=== PATIENT | male | born 1950 | race Caucasian/White ===

== ENCOUNTER 2016-11-18 11:54 | Inpatient (IN) | payer OTHER, MEDICARE ==
[2016-11-18] VITALS (9 sets, daily range): BP systolic 136–186; BP diastolic 66–89; PULSE 50–54; RESP 16–22; TEMP 98.4–98.8; O2SAT 93–99
[~2016-11-18] VITALS: Ht 170.2 cm; Wt 70.2 kg
[2016-11-18] MEDS ORDERED: ALLO300T2 PO (11:58)
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
[2016-11-18 12:35] LABS: POTASSIUM 4.1 MEQ/L (3.5-5.1)
[2016-11-18 12:39] LABS: BICARBONATE 29.2 MEQ/L (21.0-32.0)
[2016-11-18] MEDS ORDERED: MORPHINE SULFATE 8 MG/ML INJ IV PUSH ONE (12:45)
[2016-11-18] MEDS ORDERED: ONDANSETRON HCL 4 MG/2 ML VIAL IV PUSH ONE (12:45)
[2016-11-18] MEDS: SODIUM CHLOR 0.9% 1000 ML INJ 1,000 ML IV SCH ×2 (12:54→20:57)
[2016-11-18 13:04] LABS: AUTOMATED NEUTROPHIL # 4.5 TH/MM3 (1.8-7.7); BASOPHIL % 0.4 % (0.0-2.0); EOSINOPHIL # 0.1 TH/MM3 (0-0.4); EOSINOPHIL % 1.3 % (0.0-4.0); HEMO FLAGS DIFF FINAL; LYMPH % 16.5 % (9.0-44.0); MEAN CORPUSCULAR HEMOGLOBIN 36.1 PG (27.0-34.0); MEAN CORPUSCULAR HGB CONC 34.4 % (32.0-36.0); MONO % 8.3 % (0.0-8.0); NEUT % 73.5 % (16.0-70.0); PLATELET COUNT 111 TH/MM3 (150-450); RED CELL DISTRIBUTION WIDTH 12.9 % (11.6-17.2); WHITE BLOOD COUNT 6.1 TH/MM3 (4.0-11.0)
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
[2016-11-18] MEDS ORDERED: HYDROmorphone HCL PF 1 MG/ML VIAL IV PUSH ONE ×2 (13:45→16:15)
[2016-11-18] MEDS ORDERED: IOHEXOL 350 MG/ML 10 ML VIAL (for RAD DIAG) IV ONE (13:46)
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
[2016-11-18] MEDS ORDERED: ONDANSETRON HCL 4 MG/2 ML VIAL IV PRN (19:00)
[2016-11-18] MEDS ORDERED: SODIUM CHLORIDE 0.9% FLUSH 10 ML FLUSH IV FLUSH PRN (19:00)
[2016-11-18] MEDS ORDERED: MISCELLANEOUS NURSING INFORMATION XX SCH (19:00)
[2016-11-18] MEDS ORDERED: CHLORHEXIDINE GLUCONATE 2 % 1 PACK (2 CLOTHS) TOP PRN (19:00)
[2016-11-18] MEDS ORDERED: ACETAMINOPHEN 325 MG TAB PO PRN (20:00)
[2016-11-18] MEDS: ENOXAPARIN SODIUM 30 MG/0.3 ML SYRINGE SQ SCH (20:56)
[2016-11-18] MEDS: MAGNESIUM HYDROXIDE SUSP 30 ML CUP PO SCH (20:56)
[2016-11-18] MEDS: DOCUSATE SODIUM 100 MG CAP PO SCH (20:56)
[2016-11-18] MEDS ORDERED: ENALAPRILAT 1.25 MG/ML VIAL IV PRN (22:00)
[2016-11-18] MEDS: MORPHINE SULFATE 8 MG/ML INJ IV PUSH PRN (23:03)
[2016-11-19] VITALS (12 sets, daily range): BP systolic 129–160; BP diastolic 61–96; PULSE 48–60; RESP 10–21; TEMP 98.7–99.9; O2SAT 92–98
[2016-11-19] MEDS: CHLORHEXIDINE GLUCONATE 2 % 1 PACK (2 CLOTHS) TOP SCH (04:00)
--- NOTE | 2016-11-19 04:47 | RADRPT ---
EXAM DATE/TIME: 11/19/2016 03:50 [facility] COMPARISON: CT THORAX W CONTRAST, November 18, 2016, 12:59. INDICATIONS : Evaluate after respiratory failure. MEDICAL HISTORY : Cardiovascular disease. SURGICAL HISTORY : Pacemaker. ENCOUNTER: Subsequent ACUITY: 3 days PAIN SCORE: 6/10 LOCATION: Bilateral chest FINDINGS: There is mild atelectasis left lung base. No large effusion seen. No pneumothorax. Heart size upper limits of normal. Pacer again noted. CONCLUSION: Mild left base atelectasis. Phani Stern MD on November 19, 2016 at 4:45 Board Certified Radiologist. This report was verified electronically.
[2016-11-19] MEDS: MORPHINE SULFATE 8 MG/ML INJ IV PUSH PRN (04:51)
[2016-11-19 05:31] LABS: AUTOMATED NEUTROPHIL # 5.5 TH/MM3 (1.8-7.7); BASOPHIL % 0.4 % (0.0-2.0); EOSINOPHIL # 0.1 TH/MM3 (0-0.4); EOSINOPHIL % 0.9 % (0.0-4.0); HEMO FLAGS DIFF FINAL; LYMPH % 19.7 % (9.0-44.0); LYMPHOCYTE # 1.6 TH/MM3 (1.0-4.8); MEAN CELL VOLUME 106.1 FL (80.0-100.0); MEAN CORPUSCULAR HEMOGLOBIN 36.8 PG (27.0-34.0); MEAN CORPUSCULAR HGB CONC 34.7 % (32.0-36.0); MONO % 10.2 % (0.0-8.0); NEUT % 68.8 % (16.0-70.0); PLATELET COUNT 109 TH/MM3 (150-450); RED BLOOD COUNT 4.06 MIL/MM3 (4.50-5.90); RED CELL DISTRIBUTION WIDTH 13.7 % (11.6-17.2)
[2016-11-19] MEDS: SODIUM CHLOR 0.9% 1000 ML INJ 1,000 ML IV SCH ×2 (08:45→18:45)
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
[2016-11-19] MEDS: LACTULOSE SYRUP 20 GM/30 ML CUP PO SCH (10:12)
[2016-11-19] MEDS: DOCUSATE SODIUM 100 MG CAP PO SCH ×2 (10:12→21:41)
[2016-11-19] MEDS: ALLOPURINOL 300 MG TAB PO SCH (10:12)
[2016-11-19] MEDS: METHOCARBAMOL 500 MG TAB PO SCH ×3 (10:12→21:41)
[2016-11-19] MEDS: ENOXAPARIN SODIUM 30 MG/0.3 ML SYRINGE SQ SCH ×2 (10:12→21:41)
[2016-11-19] MEDS: IBUPROFEN 400 MG TAB PO SCH ×3 (12:04→22:19)
[2016-11-19 15:52] LABS: BICARBONATE 26.3 MEQ/L (21.0-32.0); POTASSIUM 3.9 MEQ/L (3.5-5.1)
--- NOTE | 2016-11-19 16:49 | ECHRPT ---
Indication: Chest pain, unspecified CONCLUSIONS The left ventricular systolic function is hyperdynamic with an estimated ejection fraction in the ra nge of 65- 70%.Mild mitral valve regurgitation. There is mild tricuspid valve regurgitation. There is estimated mild pulmonary hypertension present (range 40-50 mmHg). Mild pulmonary valve regurgitation. BP: 146 / 64 HR: Rhythm: Sinus MEASUREMENTS (Male / Female) Normal Values Technical Quality:Good 2D ECHO LV Diastolic Diameter PLAX 4.6 cm 4.2 - 5.9 / 3.9 - 5.3 cm LV Systolic Diameter PLAX 3.1 cm IVS Diastolic Thickness 1.4 cm 0.6 - 1.0 / 0.6 - 0.9 cm LVPW Diastolic Thickness 1.2 cm 0.6 - 1.0 / 0.6 - 0.9 cm LV Relative Wall Thickness 0.6 RV Internal Dim ED PLAX 2.4 cm LVOT Diameter 2.1 cm M-MODE Aortic Root Diameter MM 3.0 cm LA Systolic Diameter MM 3.7 cm LA Ao Ratio MM 1.2 AV Cusp Separation MM 2.0 cm DOPPLER AV Peak Velocity 179.0 cm/s AV Peak Gradient 12.8 mmHg AV Mean Gradient 5.0 mmHg AV Velocity Time Integral 28.3 cm LVOT Peak Velocity 99.3 cm/s LVOT Peak Gradient 3.9 mmHg LVOT Velocity Time Integral 19.9 cm AV Area Cont Eq vti 2.4 cm AV Area Cont Eq pk 1.9 cm Mitral E Point Velocity 74.5 cm/s Mitral A Point Velocity 78.0 cm/s Mitral E to A Ratio 1.0 LV E' Lateral Velocity 11.9 cm/s Mitral E to LV E' Lateral Ratio 6.3 LV E' Septal Velocity 9.8 cm/s Mitral E to LV E' Septal Ratio 7.6 TR Peak Velocity 269.0 cm/s TR Peak Gradient 28.9 mmHg FINDINGS LEFT VENTRICLE The left ventricular systolic function is hyperdynamic with an estimated ejection fraction in the ra nge of 65- 70%. MITRAL VALVE Mild mitral valve regurgitation. TRICUSPID VALVE There is mild tricuspid valve regurgitation. There is estimated mild pulmonary hypertension present (range 40-50 mmHg). PULMONARY VALVE Mild pulmonary valve regurgitation. OTHER FINDINGS mvp anterior leaflet George Smiley MD (Electronically Signed) Final Date:19 November 2016 16:49
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
--- NOTE | 2016-11-19 17:44 | EKG ---
Date Performed: 11/18/2016 Time Performed: 19:06:54 PTAGE: 66 years EKG: Sinus bradycardia Normal ECG except for rate PREVIOUS TRACING : 11/18/2016 16.54 Compared to prior tracing no significant change DOCTOR: Domo Rust Interpretating Date/Time 11/19/2016 17:43:18
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
--- NOTE | 2016-11-19 17:49 | EKG ---
Date Performed: 11/18/2016 Time Performed: 16:54:36 PTAGE: 66 years EKG: Sinus bradycardia Normal ECG except for rate NO PREVIOUS TRACING DOCTOR: Domo Rust Interpretating Date/Time 11/19/2016 17:47:28
[2016-11-19] MEDS ORDERED: MAGN400S PO (18:17)
[2016-11-19] MEDS ORDERED: DOCU1CAP39 PO (18:17)
[2016-11-19] MEDS: MAGNESIUM HYDROXIDE SUSP 30 ML CUP PO SCH (21:00)
[2016-11-20] MEDS: CHLORHEXIDINE GLUCONATE 2 % 1 PACK (2 CLOTHS) TOP SCH (04:00)
[2016-11-20 04:30] VITALS: BP 133/73; PULSE 50; RESP 16; TEMP 98.1; O2SAT 94
[2016-11-20] MEDS: SODIUM CHLOR 0.9% 1000 ML INJ 1,000 ML IV SCH ×2 (04:45→13:33)
[2016-11-20] MEDS: METHOCARBAMOL 500 MG TAB PO SCH ×3 (05:15→21:16)
[2016-11-20] MEDS: IBUPROFEN 400 MG TAB PO SCH ×4 (05:15→21:16)
--- NOTE | 2016-11-20 05:45 | RADRPT ---
EXAM DATE/TIME: 11/20/2016 04:32 [facility] COMPARISON: CHEST SINGLE AP, November 19, 2016, 3:50. INDICATIONS : Evaluate after respiratory failure. MEDICAL HISTORY : Cardiovascular disease. SURGICAL HISTORY : Pacemaker. ENCOUNTER: Subsequent ACUITY: 4 - 6 days PAIN SCORE: 7/10 LOCATION: Bilateral chest FINDINGS: A single view of the chest demonstrates the lungs to be symmetrically aerated without evidence of mas s, infiltrate or effusion. The right sided AV sequential transvenous pacer remains in place. The card iomediastinal contours are unremarkable. Osseous structures are intact. CONCLUSION: No acute disease. Dennis Smith MD on November 20, 2016 at 5:44 Board Certified Radiologist. This report was verified electronically.
[2016-11-20 08:00] VITALS: BP 142/69; PULSE 51; RESP 18; TEMP 97.8; O2SAT 96
[2016-11-20 08:47] LABS: AUTOMATED NEUTROPHIL # 6.1 TH/MM3 (1.8-7.7); BASOPHIL % 0.4 % (0.0-2.0); EOSINOPHIL # 0.1 TH/MM3 (0-0.4); EOSINOPHIL % 1.4 % (0.0-4.0); HEMATOCRIT 37.2 % (39.0-51.0); LYMPH % 9.6 % (9.0-44.0); LYMPHOCYTE # 0.7 TH/MM3 (1.0-4.8); MEAN CELL VOLUME 105.2 FL (80.0-100.0); MEAN CORPUSCULAR HEMOGLOBIN 36.5 PG (27.0-34.0); MEAN CORPUSCULAR HGB CONC 34.7 % (32.0-36.0); NEUT % 79.6 % (16.0-70.0); PLATELET COUNT 92 TH/MM3 (150-450); RED BLOOD COUNT 3.53 MIL/MM3 (4.50-5.90); RED CELL DISTRIBUTION WIDTH 13.6 % (11.6-17.2); WHITE BLOOD COUNT 7.7 TH/MM3 (4.0-11.0)
[2016-11-20 08:49] LABS: HEMO FLAGS AUTO DIFF
[2016-11-20] MEDS: LACTULOSE SYRUP 20 GM/30 ML CUP PO SCH (09:00)
[2016-11-20 09:07] LABS: POTASSIUM 3.8 MEQ/L (3.5-5.1)
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
[2016-11-20 10:35] LABS: PLATELET ESTIMATE SMEAR LOW (NORMAL); PLATELET MORPHOLOGY NORMAL (NORMAL); SCAN/DIFF AUTO DIFF CONFIRMED
[2016-11-20] MEDS: DOCUSATE SODIUM 100 MG CAP PO SCH ×2 (10:44→21:00)
[2016-11-20] MEDS: ENOXAPARIN SODIUM 30 MG/0.3 ML SYRINGE SQ SCH ×2 (10:44→21:20)
[2016-11-20] MEDS: ALLOPURINOL 300 MG TAB PO SCH (10:44)
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
[2016-11-20 12:00] VITALS: BP 144/79; PULSE 50; RESP 18; TEMP 97.9; O2SAT 98
[2016-11-20] MEDS: PSEUDOEPHEDRINE HCL 30 MG TAB PO PRN ×2 (13:32→23:41)
[2016-11-20] MEDS ORDERED: BISACODYL 10 MG SUPP RECTAL ONE (15:15)
[2016-11-20] MEDS ORDERED: BISACODYL EC 5 MG TABEC PO ONE (15:15)
[2016-11-20 16:00] VITALS: BP 159/76; PULSE 51; RESP 18; TEMP 98.9; O2SAT 98
[2016-11-20] MEDS ORDERED: BENZONATATE 100 MG CAP PO PRN (18:15)
[2016-11-20] MEDS: guaiFENesin SOLUTION 200 MG/10 ML CUP PO PRN ×2 (18:42→23:41)
[2016-11-20] MEDS: MAGNESIUM HYDROXIDE SUSP 30 ML CUP PO SCH (21:00)
[2016-11-20] MEDS ORDERED: FAMOTIDINE 20 MG TAB PO SCH (21:00)
[2016-11-20 21:12] VITALS: BP 153/69; PULSE 54; RESP 19; TEMP 99; O2SAT 94
[2016-11-21 00:23] VITALS: BP 159/81; PULSE 55; RESP 19; TEMP 99.7; O2SAT 92
[2016-11-21] MEDS: SODIUM CHLOR 0.9% 1000 ML INJ 1,000 ML IV SCH ×2 (00:45→10:45)
[2016-11-21] MEDS: IBUPROFEN 400 MG TAB PO SCH ×2 (03:24→10:17)
[2016-11-21] MEDS: guaiFENesin SOLUTION 200 MG/10 ML CUP PO PRN ×2 (03:24→07:45)
[2016-11-21 03:33] VITALS: BP 135/77; PULSE 52; RESP 18; TEMP 99.6; O2SAT 96
[2016-11-21] MEDS: CHLORHEXIDINE GLUCONATE 2 % 1 PACK (2 CLOTHS) TOP SCH (04:00)
[2016-11-21] MEDS: METHOCARBAMOL 500 MG TAB PO SCH ×2 (05:14→14:42)
[2016-11-21] MEDS: LACTULOSE SYRUP 20 GM/30 ML CUP PO SCH (07:45)
[2016-11-21] MEDS: PSEUDOEPHEDRINE HCL 30 MG TAB PO PRN (07:46)
[2016-11-21] MEDS: ALLOPURINOL 300 MG TAB PO SCH (07:46)
[2016-11-21] MEDS: DOCUSATE SODIUM 100 MG CAP PO SCH (07:47)
[2016-11-21] MEDS: ENOXAPARIN SODIUM 30 MG/0.3 ML SYRINGE SQ SCH (07:47)
[2016-11-21 08:00] VITALS: BP 121/75; PULSE 52; RESP 18; TEMP 98; O2SAT 95
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
[2016-11-21 12:17] VITALS: BP 139/68; PULSE 50; RESP 18; TEMP 99; O2SAT 96
[2016-11-21] MEDS ORDERED: GUAI1SOL3 PO (13:51)
[2016-11-21] MEDS ORDERED: IBUP-1129 PO (14:23)
[2016-11-21] MEDS ORDERED: ACET1TAB86 PO (14:23)
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
[2016-11-21] MEDS ORDERED: LEVA750T9 PO (22:59)
== END 2016-11-21 14:55 | disposition home or self-care (01) | DRG 552 ==
LOC: PHEFT 11:54 → PHEDA 16:05 → N03A 20:18 → N06B 11-19 12:26
PROVIDERS: ADMIT Surgery; ATTEND Surgery
DX: S32.049A Unspecified fracture of fourth lumbar vertebra, initial encounter for closed fracture (principal); S32.059A Unspecified fracture of fifth lumbar vertebra, initial encounter for closed fracture; S20.219A Contusion of unspecified front wall of thorax, initial encounter; V49.59XA Passenger injured in collision with other motor vehicles in traffic accident, initial encounter; Y92.410 Unspecified street and highway as the place of occurrence of the external cause; R00.1 Bradycardia, unspecified; M10.9 Gout, unspecified; M48.00 Spinal stenosis, site unspecified; Z95.0 Presence of cardiac pacemaker; Z85.820 Personal history of malignant melanoma of skin
CPT/HCPCS: 70450; 71010; 71260; 72020; 72125; 72128; 72131; 74177; 80048; 84484; 85025; 87641; 93005; 93306; 94150; 94640; 94667; 94668; 96361; 96374; 96375; J1170; J1650; J2270; J2405; J7030; L0150; L0484; Q9967

== ENCOUNTER 2016-11-21 18:41 | Emergency (ER) | payer OTHER ==
[~2016-11-21] VITALS: Ht 170.2 cm; Wt 68.0 kg
[~2016-11-21 18:41] MED LIST: ACET1TAB86 PO; ALLO300T2 PO; DOCU1CAP39 PO; GUAI1SOL3 PO; IBUP-1129 PO; MAGN400S PO
[2016-11-21 18:42] VITALS: BP 176/81; PULSE 86; RESP 16; TEMP 100.1; O2SAT 97
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
[2016-11-21] MEDS ORDERED: SODIUM CHLORIDE 0.9% FLUSH 10 ML FLUSH IVF PRN (19:15)
--- NOTE | 2016-11-21 19:24 | RADRPT ---
EXAM DATE/TIME: 11/21/2016 19:07 [facility] COMPARISON: CHEST SINGLE AP, November 20, 2016, 4:32. INDICATIONS : Chest pain. MEDICAL HISTORY : Cardiovascular disease. SURGICAL HISTORY : Pacemaker. ENCOUNTER: Initial ACUITY: 4 - 6 days PAIN SCORE: 7/10 LOCATION: Bilateral chest FINDINGS: A single view of the chest demonstrates the lungs to be symmetrically aerated without evidence of mas s, infiltrate or effusion. The cardiomediastinal contours are unremarkable. Osseous structures are intact. Cardiac pacer leads are stable. CONCLUSION: The lungs are clear. Giuseppe Chapman MD on November 21, 2016 at 19:21 Board Certified Radiologist. This report was verified electronically.
[2016-11-21] MEDS ORDERED: ACETAMINOPHEN 325 MG TAB PO ONE (19:30)
[2016-11-21 19:50] VITALS: BP 141/66; PULSE 53; RESP 18; O2SAT 94
[2016-11-21 20:13] LABS: BASOPHIL % 0.3 % (0.0-2.0); EOSINOPHIL # 0.1 TH/MM3 (0-0.4); EOSINOPHIL % 1.4 % (0.0-4.0); HEMATOCRIT 36.9 % (39.0-51.0); HEMO FLAGS DIFF FINAL; LYMPH % 6.3 % (9.0-44.0); LYMPHOCYTE # 0.4 TH/MM3 (1.0-4.8); MEAN CELL VOLUME 104.3 FL (80.0-100.0); MEAN CORPUSCULAR HGB CONC 35.5 % (32.0-36.0); MONO % 12.3 % (0.0-8.0); NEUT % 79.7 % (16.0-70.0); PLATELET COUNT 107 TH/MM3 (150-450); RED BLOOD COUNT 3.54 MIL/MM3 (4.50-5.90); RED CELL DISTRIBUTION WIDTH 13.2 % (11.6-17.2); WHITE BLOOD COUNT 6.3 TH/MM3 (4.0-11.0)
[2016-11-21 20:20] LABS: PROTHROMBIN TIME - PATIENT 11.6 SEC (9.8-11.6)
[2016-11-21 20:25] LABS: ANION GAP 12 MEQ/L (5-15); BICARBONATE 22.2 MEQ/L (21.0-32.0); BLOOD UREA NITROGEN 16 MG/DL (7-18); CHLORIDE 101 MEQ/L (98-107); GLOMERULAR FILTRATION RATE 76 ML/MIN (>89); SODIUM (NA) 135 MEQ/L (136-145)
[2016-11-21 20:29] LABS: CREATINE KINASE 280 U/L (39-308)
[2016-11-21 20:41] LABS: CKMB 1.2 NG/ML (0.5-3.6)
[2016-11-21] MEDS ORDERED: IOHEXOL 350 MG/ML 10 ML VIAL (for RAD DIAG) IV ONE (22:38)
--- NOTE | 2016-11-21 22:47 | RADRPT ---
EXAM DATE/TIME: 11/21/2016 22:33 [facility] COMPARISON: No previous studies available for comparison. INDICATIONS : Shortness of breath. IV CONTRAST: 75 cc Omnipaque 350 (iohexol) IV RADIATION DOSE: 23.19 CTDIvol (mGy) MEDICAL HISTORY : Cardiovascular disease. Spinal stenosis. Melanoma with mets. SURGICAL HISTORY : Pacemaker. ENCOUNTER: Initial ACUITY: 1 day PAIN SCALE: 0/10 LOCATION: Left chest TECHNIQUE: Volumetric scanning of the chest was performed using a pulmonary embolism protocol MIP images were re constructed. Using automated exposure control and adjustment of the mA and/or kV according to patien t size, radiation dose was kept as low as reasonably achievable to obtain optimal diagnostic quality images. FINDINGS: PULMONARY ARTERIES: No filling defects are seen in the pulmonary arteries through the segmental level. LUNGS: There is some patchy areas of opacity in the right costophrenic angle. The remainder of the lungs ar e clear. PLEURAE: Tiny bilateral pleural effusions measuring less than 6 mm in thickness. MEDIASTINUM: There is good visualization of the great vessels of the middle mediastinum. No evidence of mediastin al or hilar adenopathy/mass. CONCLUSION: 1. The study is negative for pulmonary embolism. 2. Tiny bilateral pleural effusions and a small area of infiltrate or atelectasis in the right costop hrenic angle. Giuseppe Chapman MD on November 21, 2016 at 22:43 Board Certified Radiologist. This report was verified electronically.
[2016-11-21] MEDS ORDERED: LEVA750T9 PO (22:59)
[2016-11-21] MEDS ORDERED: LEVOFLOXACIN 750 MG TAB PO ONE (23:00)
--- NOTE | 2016-11-22 11:29 | EKG ---
Date Performed: 11/21/2016 Time Performed: 19:46:04 PTAGE: 66 years EKG: SUPRAVENTRICULAR BRADYCARDIA MODERATE VOLTAGE CRITERIA FOR LVH, CONSIDER NORMAL VARIANT MOD ERATE ST DEPRESSION Since previous tracing, no significant change noted ABNORMAL ECG PREVIOUS TRACING : 11/18/2016 19.06 DOCTOR: Rony Cancino Interpretating Date/Time 11/22/2016 11:28:21
== END 2016-11-21 23:18 | disposition home or self-care (01) ==
LOC: NEPD 18:41
DX: J18.9 Pneumonia, unspecified organism (principal); R94.31 Abnormal electrocardiogram [ECG] [EKG]; I49.5 Sick sinus syndrome; Z86.718 Personal history of other venous thrombosis and embolism; Z85.820 Personal history of malignant melanoma of skin; Z95.0 Presence of cardiac pacemaker
CPT/HCPCS: 71010; 71275; 80048; 82550; 82552; 84484; 85025; 85610; 85730; 87804; 93005; 99285; Q9967